=== PATIENT | female | born 1995 | race Caucasian/White ===

== ENCOUNTER 2016-12-13 14:25 | Emergency (ER) | payer OTHER ==
[~2016-12-13] VITALS: Ht 154.9 cm; Wt 49.0 kg
[~2016-12-13 14:25] MED LIST: IBUP400T22 PO; METO5TAB58 PO; NITR-58 PO; OMEP20CA9 PO; ONDA4TAB14 PO; ONDA4TAB8 PO; PANT40TA3 PO; SUCR1TAB56 PO
[2016-12-13 14:48] VITALS: Ht 154.9 cm; Wt 49.0 kg
[2016-12-13] MEDS ORDERED: FAMOTIDINE 20 MG INJ IV STA (16:00)
[2016-12-13] MEDS ORDERED: morphine 4 MG/ML VIAL IV STA (16:00)
[2016-12-13] MEDS ORDERED: SOD CHLORIDE 0.9% 1,000 ML IV STA (16:00)
[2016-12-13] MEDS ORDERED: ONDANSETRON 4 MG INJ IV STA ×2 (16:00→17:29)
[2016-12-13 16:20] LABS: ADD SCAN DIFF NO
[2016-12-13 16:25] LABS: BASOPHILS % 0.1 % (0.0-2.0); HEMATOCRIT 41.7 % (37.0-47.0); HEMOGLOBIN 14.1 g/dl (12.0-16.0); LYMPHOCYTES # 0.8 10^3/ul (0.8-2.9); LYMPHOCYTES % 9.7 % (15.0-51.0); MEAN CORPUSCULAR HEMOGLOBIN 30.2 pg (29.0-33.0); MEAN CORPUSCULAR HGB CONC 33.8 g/dl (32.0-37.0); MEAN CORPUSCULAR VOLUME 89.3 fl (82.0-101.0); MEAN PLATELET VOLUME 11.1 fl (7.4-10.4); MONOCYTE # 0.1 10^3/ul (0.3-0.9); MONOCYTES % 1.3 % (0.0-11.0); NEUTROPHIL # 7.5 10^3/ul (1.6-7.5); NEUTROPHILS % 88.5 % (39.0-77.0); PLATELET COUNT 279 10^3/UL (140-415); RED BLOOD COUNT 4.67 10^6/ul (4.20-5.40); RED CELL DISTRIBUTION WIDTH 13.6 % (11.5-14.5); WHITE BLOOD COUNT 8.5 10^3/ul (4.8-10.8)
[2016-12-13 16:44] LABS: ALBUMIN 5.1 g/dl (3.3-4.9); POTASSIUM 3.4 mmol/L (3.5-5.1)
[2016-12-13 16:46] LABS: BILIRUBIN,INDIRECT 0.6 mg/dl (0-1.1); BILIRUBIN,TOTAL 0.6 mg/dl (0.2-1.3); CREATININE 0.75 mg/dl (0.44-1.00)
[2016-12-13 16:47] LABS: ALBUMIN/GLOBULIN RATIO 1.54; TOTAL PROTEIN 8.4 g/dl (6.1-8.1)
[2016-12-13] MEDS: LIDOCAINE/MYLANTA 40 ML BTL PO ONE ×2 (17:35→17:37)
[2016-12-13 17:50] LABS: ADD UMIC YES; URINE BILIRUBIN (Dip) NEGATIVE (NEGATIVE); URINE BLOOD (Dip) NEGATIVE (NEGATIVE); URINE COLOR LT. YELLOW (YELLOW); URINE GLUCOSE (Dip) NEGATIVE (NEGATIVE); URINE KETONES (Dip) 3+ (NEGATIVE); URINE LEUKOCYTE ESTERASE (Dip) TRACE (NEGATIVE); URINE NITRITE (Dip) NEGATIVE (NEGATIVE); URINE TOTAL PROTEIN (Dip) NEGATIVE (NEGATIVE); URINE UROBILINOGEN (Dip) 0.2 E.U./dL (0.1-1.0)
--- NOTE | 2016-12-13 17:54 | RADRPT ---
PROCEDURE: CT abdomen and pelvis without IV contrast. CLINICAL INDICATION: Abdominal pain TECHNIQUE: CT scan of the abdomen and pelvis without contrast was performed on the [employer] volumetric [address] scanner. The patient was scanned without intravenous contrast. Coronal and sagittal refo rmatted images were obtained from the axial source images. The CTDI vol is 7.47 mGy and the DLP is 3 49.43 mGy-cm. COMPARISON: None. FINDINGS: CT abdomen: The lung bases are clear. The heart size is not enlarged and is without pericardial thickening or e ffusion. The liver is normal in size and density and is without focal mass or intrahepatic biliary dilatation . The spleen is normal in size and homogeneous in density. The stomach is grossly unremarkable. T he pancreas as visualized is normal. Suggestion of layering sludge in the gallbladder lumen is seen . No common bile duct dilatation is seen. The adrenal glands are symmetric and normal. The kidneys are symmetrically unremarkable as well. No renal calculus or obstructive uropathy or mass lesion i s seen. The aorta is of normal in caliber. There is no retroperitoneal lymphadenopathy. The gian hepatis region is clear. The small and large bowel and mesentery, as visualized, are unremarkable. The norm al appendix is identified. CT pelvis: The pelvic organs are normal. The pelvic sidewalls and inguinal regions are clear. No pelvic mass, lymphadenopathy, or free fluid is seen. No acute inflammation is seen. The urinary bladder is wit hin normal limits. The surrounding osseous structures are unremarkable. No osteolytic or osteoblastic lesion is detect ed. IMPRESSION: 1. No acute pathology in the abdomen and pelvis. 2. Suggestion of layering sludge in the gallbladder lumen. RPTAT: HPNM Physician Arley Date Time Electronically viewed and signed by Physician Arley on 12/13/2016 17:54 /
[2016-12-13 18:07] LABS: BACTERIA,URINE MODERATE; SQUAMOUS EPITHELIAL CELL,UR MANY; URINE RBCS NONE SEEN /HPF (0)
[2016-12-13] MEDS ORDERED: PANT40TA3 PO (18:16)
[2016-12-13] MEDS ORDERED: ONDA4TAB14 PO (18:16)
--- NOTE | 2016-12-13 18:21 | ERD ---
ER Documentation Chief Complaint Date/Time DATE: 12/13/16 TIME: 18:17 Chief Complaint Complains of abdominal pain x 3 days but has been a couple of weeks HPI 21-year-old female with a past medical history of gastric ulcers, epigastric pain presents to the ED complaining of generalized abdominal pain that started earlier this morning. Ports that this abdominal pain feels different because it is very severe. Rates the pain a 10 out of 10. States that she has not tried taking any medications. 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 Gamez. Reports that she has an endoscopy appointment on December 01, 2016. States that her last menses was 1 week ago. Denies any chest pain, shortness of breath, diarrhea, weakness, numbness or tingling. Denies any alcohol, drug use, smoking. Denies any dysuria, urgency, frequency, hematuria. ROS All systems reviewed and are negative except as per history of present illness. Medications Home Meds Active Scripts Ondansetron (Ondansetron Odt) 4 Mg Tab.rapdis, 4 MG PO Q6H Y for NAUSEA AND/OR VOMITING, #20 TAB Prov:REGLA VALENTE PA-C 12/13/16 Pantoprazole* (Protonix*) 40 Mg Tablet.dr, 40 MG PO DAILY, #30 TAB Prov:REGLA VALENTE PA-C 12/13/16 Ibuprofen* (Motrin*) 400 Mg Tab, 400 MG PO Q6H Y for PAIN AND OR ELEVATED TEMP, #30 TAB Prov:SURESH HOLT PA-C 07/20/16 Ondansetron (Ondansetron Odt) 4 Mg Tab.rapdis, 4 MG PO Q6H Y for NAUSEA AND/OR VOMITING, #10 TAB Prov:SURESH HOLT PA-C 07/20/16 Nitrofurantoin Monohyd Macrocr* (Macrobid*) 100 Mg Capsr, 100 MG PO BID for 14 Days, CAP Prov:PETER BRYSON PA-C 06/27/16 Ondansetron Hcl* (Zofran*) 4 Mg Tablet, 4 MG PO Q6H for NAUSEA AND/OR VOMITING, #30 TAB Prov:PETER BRYSON PA-C 06/27/16 Pantoprazole* (Protonix*) 40 Mg Tablet., 40 MG PO DAILY, #20 TAB Prov:PETER BRYSON PA-C 06/27/16 Sucralfate* (Carafate*) 1 Gm Tab, 1 GM PO QID, #30 TAB Prov:PETER BRYSON PA-C 04/11/16 Ondansetron Hcl* (Zofran*) 4 Mg Tablet, 4 MG PO Q6H for NAUSEA AND/OR VOMITING, #10 TAB Prov:MARYBETH PUGH NP 02/12/16 Reported Medications Omeprazole* (Prilosec*) 20 Mg Capsule.dr, 20 MG PO QAM, CAP 10/24/14 Metoclopramide* (Reglan*) 5 Mg Tablet, 5 MG PO QAM, TAB 10/24/14 Allergies Allergies: Coded Allergies: No Known Drug Allergies (Verified Allergy, Mild, 10/24/14) PMhx/Soc History of Surgery: No Anesthesia Reaction: No Hx Neurological Disorder: Yes (HX OF MIGRAINES) Hx Respiratory Disorders: No Hx Cardiac Disorders: No Hx Psychiatric Problems: No Hx Miscellaneous Medical Probl: Yes (GASTRIC ULCERS) Hx Alcohol Use: No Hx Substance Use: No Hx Tobacco Use: No Physical Exam Vitals Vital Signs Date Time Temp Pulse Resp B/P Pulse Ox O2 Delivery O2 Flow Rate FiO2 12/13/16 14:48 98.3 80 20 141/85 100 Physical Exam Const: [id number], well-nourished. In no acute distress. Head: Atraumatic, normocephalic Eyes: Normal Conjunctiva without injection. No purulent discharge. ENT: Normal external ear, nose. Moist oropharynx without tonsillar exudates. Non -erythematous pharynx. Uvula midline. No drooling. No trismus. Neck: No cervical midline tenderness. Full range of motion. No meningismus. No cervical lymphadenopathy. No JVD. Resp: Clear to auscultation bilaterally. No wheezing, rhonchi, rales, or crackles. No accessory muscle use. No retractions. Cardio: Regular rate and rhythm. No murmurs, rubs or gallops. Abd: Soft, generalized tenderness palpation, non distended. Normal bowel sounds. No palpable masses. No rebound tenderness. No guarding. Negative McBurney's point. Negative psoas sign. Negative obturator sign. Skin: No petechiae or rashes Back: No midline tenderness. No CVA tenderness. Ext: No cyanosis, or edema. Neur: Awake and alert. Normal gait. Normal coordination. Psych: Normal Mood and Affect Result Diagram: 12/13/16 1614 12/13/16 1614 Results 24 hrs Laboratory Tests Test 12/13/16 16:14 12/13/16 17:00 Alanine Aminotransferase (ALT/SGPT) 42IU/L Albumin 5.1g/dl Albumin/Globulin Ratio 1.54 Alkaline Phosphatase 98IU/L Anion Gap 22 Aspartate Amino Transf (AST/SGOT) 32IU/L Basophils # 0.010^3/ul Basophils % 0.1% Blood Urea Nitrogen 14mg/dl Calcium Level 10.0mg/dl Carbon Dioxide Level 21mmol/L Chloride Level 102mmol/L Creatinine 0.75mg/dl Direct Bilirubin 0.00mg/dl Eosinophils # 0.010^3/ul Eosinophils % 0.0% Globulin 3.30g/dl Glucose Level 124mg/dl Hematocrit 41.7% Hemoglobin 14.1g/dl Indirect Bilirubin 0.6mg/dl Lipase 57U/L Lymphocytes # 0.810^3/ul Lymphocytes % 9.7% Mean Corpuscular Hemoglobin 30.2pg Mean Corpuscular Hemoglobin Concent 33.8g/dl Mean Corpuscular Volume 89.3fl Mean Platelet Volume 11.1fl Monocytes # 0.110^3/ul Monocytes % 1.3% Neutrophils # 7.510^3/ul Neutrophils % 88.5% Nucleated Red Blood Cells # 0.010^3/ul Nucleated Red Blood Cells % 0.0/100WBC Platelet Count 42692^3/UL Potassium Level 3.4mmol/L Red Blood Count 4.6710^6/ul Red Cell Distribution Width 13.6% Sodium Level 142mmol/L Total Bilirubin 0.6mg/dl Total Protein 8.4g/dl White Blood Count 8.510^3/ul Urine Bacteria MODERATE Urine Bilirubin NEGATIVE Urine Clarity CLOUDY Urine Color LT. YELLOW Urine Glucose NEGATIVE% Urine Hemoglobin NEGATIVE Urine Ketones 3+ Urine Leukocyte Esterase TRACE Urine Microscopic RBC NONE SEEN/HPF Urine Microscopic WBC 5-10/HPF Urine Nitrite NEGATIVE Urine Specific [place] 1.020 Urine Squamous Epithelial Cells MANY Urine Total Protein NEGATIVE Urine Urobilinogen 0.2 E.U./dL Urine pH 7.0 Current Medications Medications (Trade) Dose Ordered Sig/Charito Route PRN Reason Start Time Stop Time Status Last Admin Dose Admin Sodium Chloride (NS) 1,000 ml @ 1,000 mls/hr Q1H STAT IV 12/13/16 16:00 12/13/16 16:59 DC 12/13/16 16:09 Morphine Sulfate (morphine) 4 mg ONCE STAT IV 12/13/16 16:00 12/13/16 16:02 DC 12/13/16 16:10 Ondansetron HCl (Zofran Inj) 4 mg ONCE STAT IV 12/13/16 16:00 12/13/16 16:02 DC 12/13/16 16:10 Famotidine (Pepcid Iv) 20 mg ONCE STAT IV 12/13/16 16:00 12/13/16 16:02 DC 12/13/16 16:09 Miscellaneous Medication (Gi Cocktail (2)) 40 ml ONCE ONCE PO 12/13/16 17:30 12/13/16 17:31 DC Ondansetron HCl (Zofran Inj) 4 mg ONCE STAT IV 12/13/16 17:29 12/13/16 17:31 DC 12/13/16 17:35 Pantoprazole (Protonix Iv) 40 mg ONCE ONCE IV 12/13/16 18:30 12/13/16 18:31 Procedures/MDM This is a 21-year-old female with a past medical history of gastric ulcers presents the ED complaining of generalized abdominal pain.. Since patient reports that her pain is different from her previous abdominal pains, patient was further worked up with CBC, CMP, lipase, UA, urine , CT of the abdomen and pelvis. Patient's pain and symptoms have improved after treatment with 4 mg IV morphine, 20 mg IV famotidine, 40 mg IV Protonix. Patient denied wanting the GI cocktail this time. CBC: No leukocytosis. No e/o of systemic infection. No e/o anemia. CMP: No e/o severe acidosis, alkalosis, renal failure, diabetic ketoacidosis, liver disease Lipase within normal limits. Urine: No leukocyte esterase, no nitrites, no hematuria. Urine : negative PROCEDURE: CT abdomen and pelvis without IV contrast. CLINICAL INDICATION: Abdominal pain TECHNIQUE: CT scan of the abdomen and pelvis without contrast was performed on the [employer] volumetric [address] scanner. The patient was scanned without intravenous contrast. Coronal and sagittal reformatted images were obtained from the axial source images. The CTDI vol is 7.47 mGy and the DLP is 349.43 mGy -cm. COMPARISON: None. FINDINGS: CT abdomen: The lung bases are clear. The heart size is not enlarged and is without pericardial thickening or effusion. The liver is normal in size and density and is without focal mass or intrahepatic biliary dilatation. The spleen is normal in size and homogeneous in density. The stomach is grossly unremarkable. The pancreas as visualized is normal. Suggestion of layering sludge in the gallbladder lumen is seen. No common bile duct dilatation is seen. The adrenal glands are symmetric and normal. The kidneys are symmetrically unremarkable as well. No renal calculus or obstructive uropathy or mass lesion is seen. The aorta is of normal in caliber. There is no retroperitoneal lymphadenopathy. The gian hepatis region is clear. The small and large bowel and mesentery, as visualized, are unremarkable. The normal appendix is identified. CT pelvis: The pelvic organs are normal. The pelvic sidewalls and inguinal regions are clear. No pelvic mass, lymphadenopathy, or free fluid is seen. No acute inflammation is seen. The urinary bladder is within normal limits. The surrounding osseous structures are unremarkable. No osteolytic or osteoblastic lesion is detected. IMPRESSION: 1. No acute pathology in the abdomen and pelvis. 2. Suggestion of layering sludge in the gallbladder lumen. A differential diagnosis considered includes but is not limited to gastritis, GERD, peptic ulcer disease, cholecystitis, choledocholithiasis, cholangitis, pancreatitis, appendicitis, bowel obstruction, ileus, volvulus, nephrolithiasis , pyelonephritis, hepatitis, perforated viscus, diverticulitis, abdominal hernia , acute abdomen, mesenteric ischemia or other emergent conditions. Discharge medications: Protonix, Zofran Follow up with primary care physician in 1-2 days for referral to concrete spreader. Instructed patient to return to the ED sooner for any worsening symptoms. Patient's questions were answered. Patient understood and agreed with discharge plan. Patient discharged stable. Departure Diagnosis: Primary Impression: Abdominal pain Abdominal location: generalized Qualified Code: R10.84 - Generalized abdominal pain Condition: Stable Patient Instructions: Abdominal Pain, Gastritis Vs. Ulcer Referrals: COMMUNITY CLINICS YOU HAVE RECEIVED A MEDICAL SCREENING EXAM AND THE RESULTS INDICATE THAT YOU DO NOT HAVE A CONDITION THAT REQUIRES URGENT TREATMENT IN THE EMERGENCY DEPARTMENT. FURTHER EVALUATION AND TREATMENT OF YOUR CONDITION CAN WAIT UNTIL YOU ARE SEEN IN YOUR DOCTORS OFFICE WITHIN THE NEXT 1-2 DAYS. IT IS YOUR RESPONSIBILITY TO MAKE AN APPOINTMENT FOR FOLOW-UP CARE. IF YOU HAVE A PRIMARY DOCTOR --you should call your primary doctor and schedule an appointment IF YOU DO NOT HAVE A PRIMARY DOCTOR YOU CAN CALL OUR PHYSICIAN REFERRAL HOTLINE AT IF YOU CAN NOT AFFORD TO SEE A PHYSICIAN YOU CAN CHOSE FROM THE FOLLOWING [facility] [address] [facility] [address] [facility] [address] [facility] [address] [facility] [address]. [facility]. [address] [facility] [address] [address] [facility] YOU HAVE RECEIVED A MEDICAL SCREENING EXAM AND THE RESULTS INDICATE THAT YOU DO NOT HAVE A CONDITION THAT REQUIRES URGENT TREATMENT IN THE EMERGENCY DEPARTMENT. FURTHER EVALUATION AND TREATMENT OF YOUR CONDITION CAN WAIT UNTIL YOU ARE SEEN IN YOUR DOCTORS OFFICE WITHIN THE NEXT 1-2 DAYS. IT IS YOUR RESPONSIBILITY TO MAKE AN APPOINTMENT FOR FOLOW-UP CARE. IF YOU HAVE A PRIMARY DOCTOR --you should call your primary doctor and schedule and appointment IF YOU DO NOT HAVE A PRIMARY DOCTOR YOU CAN CALL OUR PHYSICIAN REFERRAL HOTLINE AT . IF YOU CAN NOT AFFORD TO SEE A PHYSICIAN YOU CAN CHOSE FROM THE FOLLOWING [facility] INSTITUTIONS: [facility] [address] [place] [address] [facility] [address] [place] [address] [facility] [address] [place] [address] [facility] URGENT CARE/SPECIALTIES Additional Instructions: FOLLOW UP WITH YOUR GASTROENTEORLOGIST IN 3-4 DAYS FOR ENDOSCOPY. Return to this facility if you are not improving as expected. REGLA VALENTE PA-C Dec 13, 2016 18:21
[2016-12-13] MEDS ORDERED: HYDROmorphONE 1 MG/ML SYG IV STA (18:25)
[2016-12-13] MEDS ORDERED: PANTOPRAZOLE 40 MG INJ IV ONE (18:30)
[2016-12-13] MEDS ORDERED: SOD CHLORIDE 0.9% 1,000 ML IV ONE (18:30)
[2016-12-13 19:16] VITALS: BP 115/71; PULSE 75; RESP 18; TEMP 99.2
== END 2016-12-13 19:16 | disposition home or self-care (01) ==
LOC: FTE 14:25
DX: R10.84 Generalized abdominal pain (principal)
CPT/HCPCS: 36415; 74176; 80053; 81001; 83690; 85025; 96374; 96375; 96376; C9113; J1170; J2270; J2405; J7030; Z7502; Z7610; 81003

== ENCOUNTER 2017-06-19 17:25 | Emergency (ER) | payer OTHER ==
[~2017-06-19] VITALS: Ht 162.6 cm; Wt 51.5 kg
[~2017-06-19 17:25] MED LIST changes: +[UNRECOGNIZED DRUG - REMARK]
[2017-06-19 17:27] VITALS: Ht 162.6 cm; Wt 51.5 kg
[2017-06-19] MEDS ORDERED: FAMOTIDINE 20 MG INJ IV STA (17:46)
[2017-06-19] MEDS ORDERED: SOD CHLORIDE 0.9% 1,000 ML IV STA (17:46)
[2017-06-19] MEDS ORDERED: LIDOCAINE/MYLANTA 40 ML BTL PO STA (17:46)
[2017-06-19] MEDS ORDERED: BELLADONNA/PHENOBARBITAL TAB PO STA (17:46)
[2017-06-19] MEDS ORDERED: ONDANSETRON 4 MG INJ IV STA (17:46)
--- NOTE | 2017-06-19 17:53 | ERD ---
ER Documentation Chief Complaint Date/Time DATE: 06/19/17 TIME: 17:49 Chief Complaint N/V with head pain x today HPI Patient is a 21-year-old female with a past medical history of gastric ulcers, chronic epigastric pain who presents to the emergency department for concerns of epigastric pain, nausea, vomiting and a headache. Patient states for last week she has had epigastric pain. Patient describes the pain to be burning and constant in nature. Patient states she initially ran out of her ranitidine and omeprazole 2 weeks ago. Patient states she recently refilled her prescription 1 week ago. Patient starting this medication. Patient states over the last 3- 4 days her symptoms have gotten worse. Patient reports 5 episodes of bilious, nonbloody vomiting today. Patient states that her pain is localized to the epigastric region. Patient denies any chest pain, shortness breath, nausea, vomiting, diarrhea. Patient also does report dysuria and increased vaginal discharge. Patient states that she has not been sexually active for 2 years. Patient admits to marijuana use earlier today to help with her symptoms. Patient states she is followed by GI specialist Dr. Reyes, who she has an upcoming endoscopy/colonoscopy scheduled within 3 weeks. She also reports a mild headache. Patient denies any sudden, 10 out of 10 onset of the headache. Patient denies any fevers, chills, blurry vision, photophobia, phonophobia or LOC. ROS All systems reviewed and are negative except as per history of present illness. Medications Home Meds Active Scripts Ondansetron (Ondansetron Odt) 4 Mg Tab.rapdis, 4 MG PO Q6H Y for NAUSEA AND/OR VOMITING, #10 TAB Prov:APRIL DÍAZ PA-C 06/19/17 Ranitidine Hcl* (Zantac*) 150 Mg Tablet, 150 MG PO BID Y for EPIGASTRIC PAIN, # 30 TAB Prov:APRIL DÍAZ PA-C 06/19/17 Omeprazole* (Omeprazole*) 20 Mg Capsule.dr, 20 MG PO BID, #30 Prov:APRIL DÍAZ PA-C 06/19/17 Ondansetron (Ondansetron Odt) 4 Mg Tab.rapdis, 4 MG PO Q6H Y for NAUSEA AND/OR VOMITING, #20 TAB Prov:REGLA VALENTE PA-C 12/13/16 Pantoprazole* (Protonix*) 40 Mg Tablet., 40 MG PO DAILY, #30 TAB Prov:REGLA VALENTE PA-C 12/13/16 Ibuprofen* (Motrin*) 400 Mg Tab, 400 MG PO Q6H Y for PAIN AND OR ELEVATED TEMP, #30 TAB Prov:SURESH HOLT PA-C 07/20/16 Ondansetron (Ondansetron Odt) 4 Mg Tab.rapdis, 4 MG PO Q6H Y for NAUSEA AND/OR VOMITING, #10 TAB Prov:SURESH HOLT PA-C 07/20/16 Nitrofurantoin Monohyd Macrocr* (Macrobid*) 100 Mg Capsr, 100 MG PO BID for 14 Days, CAP Prov:PETER BRYSON PA-C 06/27/16 Ondansetron Hcl* (Zofran*) 4 Mg Tablet, 4 MG PO Q6H for NAUSEA AND/OR VOMITING, #30 TAB Prov:PETER BRYSON PA-C 06/27/16 Pantoprazole* (Protonix*) 40 Mg Tablet., 40 MG PO DAILY, #20 TAB Prov:PETER BRYSON PA-C 06/27/16 Sucralfate* (Carafate*) 1 Gm Tab, 1 GM PO QID, #30 TAB Prov:PETER BRYSON PA-C 04/11/16 Ondansetron Hcl* (Zofran*) 4 Mg Tablet, 4 MG PO Q6H for NAUSEA AND/OR VOMITING, #10 TAB Prov:MARYBETH PUGH NP 02/12/16 Reported Medications Omeprazole* (Prilosec*) 20 Mg Capsule., 20 MG PO QAM, CAP 10/24/14 Metoclopramide* (Reglan*) 5 Mg Tablet, 5 MG PO QAM, TAB 10/24/14 Discontinued Scripts Famotidine* (Pepcid*) 20 Mg Tablet, 20 MG PO BID for 30 Days, TAB Prov:APRIL DÍAZ PA-C 06/19/17 Allergies Allergies: Coded Allergies: No Known Drug Allergies (Verified Allergy, Mild, 06/19/17) PMhx/Soc History of Surgery: No Anesthesia Reaction: No Hx Neurological Disorder: Yes (HX OF MIGRAINES) Hx Respiratory Disorders: No Hx Cardiac Disorders: No Hx Psychiatric Problems: No Hx Miscellaneous Medical Probl: Yes (GASTRIC ULCERS) Hx Alcohol Use: No Hx Substance Use: Yes (Marijuana use weekly.) Hx Tobacco Use: No Smoking Status: Never smoker Physical Exam Vitals Vital Signs Date Time Temp Pulse Resp B/P Pulse Ox O2 Delivery O2 Flow Rate FiO2 06/19/17 20:47 87 16 107/57 97 Room Air 06/19/17 17:27 96.2 127 20 122/68 100 Physical Exam GENERAL: Well-developed, well-nourished female. Appears in no acute distress. Speaking in full sentences HEAD: Normocephalic, atraumatic. EYES: Pupils are equally reactive bilaterally. EOMs grossly intact. No conjunctival erythema. ENT: Moist mucous membranes. No uvula deviation. No kissing tonsils. NECK: Supple. No meningismus. Normal range of motion of the neck. LUNG: Clear to auscultation bilaterally. No rhonchi, wheezing, rales or coarse breath sounds. HEART: Regular rate and rhythm. No murmurs, rubs or gallops. ABDOMEN: Soft, and nondistended. Tender to palpation in the epigastric region. Positive bowel sounds in all four quadrants. No rebound tenderness, no guarding. Negative McBurney point tenderness. Negative Thrasher sign. No CVA tenderness. EXTREMITIES: Equal pulses bilaterally. No peripheral clubbing, cyanosis or edema. No unilateral leg swelling. NEUROLOGIC: Alert and oriented x3, cooperative. Mood and affect appropriate to situation. Cranial nerves II through XII are grossly intact. Normal speech. Motor exam: 5/5 strength in upper and lower extremities. Sensory exam: Sensation intact to light touch on all four extremities. Steady gait. No pronator drift. SKIN: Normal color. Warm and dry. No rashes or lesions. Result Diagram: 06/19/17180206/19/171802 Results 24 hrs Laboratory Tests Test 06/19/17 18:03 06/19/17 18:10 White Blood Count 9.810^3/ul Red Blood Count 4.3010^6/ul Hemoglobin 12.7g/dl Hematocrit 38.7% Mean Corpuscular Volume 90.0fl Mean Corpuscular Hemoglobin 29.5pg Mean Corpuscular Hemoglobin Concent 32.8g/dl Red Cell Distribution Width 14.1% Platelet Count 26695^3/UL Mean Platelet Volume 11.3fl Neutrophils % 77.7% Lymphocytes % 16.7% Monocytes % 5.2% Eosinophils % 0.0% Basophils % 0.2% Nucleated Red Blood Cells % 0.0/100WBC Neutrophils # (Manual) 7.610^3/ul Lymphocytes # 1.610^3/ul Monocytes # 0.510^3/ul Eosinophils # 0.010^3/ul Basophils # 0.010^3/ul Nucleated Red Blood Cells # 0.010^3/ul Sodium Level 144mmol/L Potassium Level 3.8mmol/L Chloride Level 104mmol/L Carbon Dioxide Level 23mmol/L Anion Gap 21 Blood Urea Nitrogen 8mg/dl Creatinine 0.78mg/dl Glucose Level 92mg/dl Calcium Level 9.7mg/dl Total Bilirubin 0.6mg/dl Direct Bilirubin 0.00mg/dl Indirect Bilirubin 0.6mg/dl Aspartate Amino Transf (AST/SGOT) 23IU/L Alanine Aminotransferase (ALT/SGPT) 44IU/L Alkaline Phosphatase 79IU/L Total Protein 8.1g/dl Albumin 4.8g/dl Globulin 3.30g/dl Albumin/Globulin Ratio 1.45 Lipase 51U/L Urine Color CELESTE Urine Clarity CLOUDY Urine pH 5.0 Urine Specific [place] 1.027 Urine Ketones TRACEmg/dL Urine Nitrite NEGATIVEmg/dL Urine Bilirubin NEGATIVEmg/dL Urine Urobilinogen NEGATIVEmg/dL Urine Leukocyte Esterase 3+Carlos/ul Urine Microscopic RBC 0/HPF Urine Microscopic WBC 0/HPF Urine Hemoglobin NEGATIVEmg/dL Urine Glucose NEGATIVEmg/dL Urine Total Protein 1+mg/dl Current Medications Medications (Trade) Dose Ordered Sig/Charito Route PRN Reason Start Time Stop Time Status Last Admin Dose Admin Sodium Chloride (NS) 1,000 ml @ 1,000 mls/hr Q1H STAT IV 06/19/17 17:46 06/19/17 18:45 DC 06/19/17 18:08 Ondansetron HCl (Zofran Inj) 4 mg ONCE STAT IV 06/19/17 17:46 06/19/17 17:48 DC 06/19/17 18:07 Famotidine (Pepcid Iv) 20 mg ONCE STAT IV 06/19/17 17:46 06/19/17 17:48 DC 06/19/17 18:07 Miscellaneous Medication (Gi Cocktail (2)) 40 ml ONCE STAT PO 06/19/17 17:46 06/19/17 17:48 DC 06/19/17 18:07 Belladonna/ Phenobarbital () 2 tab ONCE STAT PO 06/19/17 17:46 06/19/17 17:48 DC 06/19/17 18:07 Lorazepam (Ativan) 1 mg ONCE ONCE IV 06/19/17 19:00 06/19/17 19:01 DC 06/19/17 19:13 Procedures/MDM ED COURSE: The patient was stable throughout ED course. I kept the patient and/or family informed of laboratory and diagnostic imaging results throughout the ED course. DIAGNOSTIC IMAGING: Read by radiologist. Patient Name Jackeline Blackburn Study Date 06/19/2017 6:55 PM Patient 1995 Accession No. [id number] Referring Physician April Díaz Pa-C CLINICAL INDICATION: Epigastric pain with history of gastric ulcers. TECHNIQUE: AP abdomen x-ray. COMPARISON: None. FINDINGS: Nonspecific moderate small bowel ileus. Recommend close radiographic follow up. Air is seen in the colon. No air seen in the rectum. Obstruction is considered less likely. Small amount of air in the stomach. There are no abnormal calcifications overlying the urinary tracts. The osseus structures are unremarkable. The lung bases are clear. IMPRESSION: Nonspecific moderate small bowel ileus. RPTAT: UU Signed By: Valentino Terrell MD 06/19/2017 7:45:12 PM . MEDICATIONS GIVEN: IV fluids fluids, Zofran, Pepcid, GI cocktail. Patient reported feeling anxious after initial medication.. Patient was given Ativan 1 mg IV. Patient tolerated medication well with no adverse reactions. No additional episodes of vomiting were noted throughout the ED course. Patient did feel her symptoms are improved. Patient wished to go home. MEDICAL DECISION MAKING: This is a 21-year-old female with history of gastric ulcers, chronic epigastric pain and marijuana use who presents the emergency department for concerns of nausea, vomiting and epigastric pain. Vital signs were reviewed. Patient is afebrile. CBC showed no evidence of systemic infection or severe anemia. CMP showed no evidence of electrolyte abnormalities, severe acidosis, alkalosis, renal failure, or liver disease. Lipase showed no evidence of acute pancreatitis. UA did show 3+ leukocyte esterase, no WBCs no RBCs. Patient did report symptoms of increased vaginal discharge. At this time I believe the leukocyte esterase are related to increased vaginal discharge. Patient's urine was sent for gonorrhea, chlamydia testing. Patient did not wish to be treated at this time. Patient will be notified if results are positive. Patient will return to the ED for treatment if needed. Urine test was negative. KUB was obtained. KUB showed nonspecific moderate small bowel ileus. I discussed these findings with my supervising physician Dr. Cartagena. Patient was observed throughout the ED course and had no additional episodes of vomiting for over 3 hours. In addition, patient was able to tolerate p.o. fluids without any difficulty. At this time, there is no indication for admission. Patient will be given strict return precautions. Patient was advised to return to the ED if she has any worsening nausea, vomiting or inability to have a bowel movement. At this time, patient's presentation is most consistent with gastric ulcer, vomiting and ileus. Low suspicion for ACS, AAA, bowel obstruction, bowel perforation, cholecystitis, pancreatitis, pyelonephritis, nephrolithiasis, appendicitis , ectopic . Patient will be given a prescription for ranitidine and omeprazole per her request. PRESCRIPTIONS: Zofran, omeprazole, ranitidine DISCHARGE: At this time, patient is stable for discharge and outpatient management. She was given a copy of all blood work and imaging studies obtained today. Patient was advised to follow-up with her GI specialist in the next 1-2 days. Patient also encouraged to move her endoscopy/colonoscopy date up. I have instructed the patient to follow-up with his/her primary care physician in 1-2 days. I have instructed the patient to promptly return to the ER at any time for any new or worsening symptoms including increased pain, nausea, vomiting, diarrhea, fever, weakness or LOC. The patient and/or family expressed understanding of and agreement with this plan. All questions were answered. Home care instructions were provided. Disclaimer: Inadvertent spelling and grammatical errors are likely due to EHR/ dictation software use and do not reflect on the overall quality of patient care. Also, please note that the electronic time recorded on this note does not necessarily reflect the actual time of the patient encounter. Departure Diagnosis: Primary Impression: Gastric ulcer Gastric ulcer chronicity: unspecified ulcer chronicity Gastric ulcer complication status: unspecified whether hemorrhage or perforation present Qualified Code: K25.9 - Gastric ulcer, unspecified chronicity, unspecified whether gastric ulcer hemorrhage or perforation present Additional Impression: Nausea and vomiting Vomiting type: unspecified Vomiting Intractability: unspecified Qualified Code: R11.2 - Nausea and vomiting, intractability of vomiting not specified, unspecified vomiting type Condition: Stable Patient Instructions: Nausea and Vomiting-Adult Additional Instructions: Call your primary care doctor TOMORROW for an appointment during the next 1-2 days.See the doctor sooner or return here if your condition worsens before your appointment time. Follow-up with your GI doctor in the next 1-2 days. Advised him that you need to have your endoscopy/colonoscopy moved up given that your pain has worsened. APRIL DÍAZ PA-C Jun 19, 2017 17:53
[2017-06-19 18:11] LABS: BASOPHILS % 0.2 % (0.0-2.0); HEMATOCRIT 38.7 % (37.0-47.0); HEMOGLOBIN 12.7 g/dl (12.0-16.0); LYMPHOCYTES # 1.6 10^3/ul (0.8-2.9); LYMPHOCYTES % 16.7 % (15.0-51.0); MEAN CORPUSCULAR HEMOGLOBIN 29.5 pg (29.0-33.0); MEAN CORPUSCULAR HGB CONC 32.8 g/dl (32.0-37.0); MEAN PLATELET VOLUME 11.3 fl (7.4-10.4); MONOCYTE # 0.5 10^3/ul (0.3-0.9); MONOCYTES % 5.2 % (0.0-11.0); NEUTROPHILS % 77.7 % (39.0-77.0); PLATELET COUNT 214 10^3/UL (140-415); RED CELL DISTRIBUTION WIDTH 14.1 % (11.5-14.5); WHITE BLOOD COUNT 9.8 10^3/ul (4.8-10.8)
[2017-06-19 18:30] LABS: ALBUMIN 4.8 g/dl (3.3-4.9); ALBUMIN/GLOBULIN RATIO 1.45; BILIRUBIN,INDIRECT 0.6 mg/dl (0-1.1); BILIRUBIN,TOTAL 0.6 mg/dl (0.2-1.3); CALCIUM 9.7 mg/dl (8.4-10.2); CREATININE 0.78 mg/dl (0.44-1.00); POTASSIUM 3.8 mmol/L (3.5-5.1); TOTAL PROTEIN 8.1 g/dl (6.1-8.1)
[2017-06-19 18:45] LABS: ADD UMIC YES; UR ASCORBIC ACID 40 mg/dL (NEGATIVE); UR BILIRUBIN (Dip) NEGATIVE (NEGATIVE); UR BLOOD (Dip) NEGATIVE (NEGATIVE); UR COLOR AMBER (YELLOW); UR GLUCOSE (Dip) NEGATIVE (NEGATIVE); UR KETONES (Dip) TRACE mg/dL (NEGATIVE); UR LEUKOCYTE ESTERASE (Dip) 3+ Leu/ul (NEGATIVE); UR NITRITE (Dip) NEGATIVE (NEGATIVE); UR RBC 0 /HPF (0-5); UR SPECIFIC GRAVITY (Dip) 1.027 (1.003-1.030); UR TOTAL PROTEIN (Dip) 1+ mg/dl (NEGATIVE); UR UROBILINOGEN (Dip) NEGATIVE (NEGATIVE)
[2017-06-19 18:50] LABS: UR CLARITY CLOUDY (CLEAR)
[2017-06-19] MEDS ORDERED: LORAZEPAM 2 MG INJ IV ONE (19:00)
[2017-06-19] MEDS ORDERED: FAMO-96 PO (20:29)
[2017-06-19] MEDS ORDERED: OMEP20CA16 PO (20:29)
[2017-06-19] MEDS ORDERED: RANI150T9 PO (20:30)
[2017-06-19] MEDS ORDERED: ONDA4TAB14 PO (20:30)
[2017-06-19 20:47] VITALS: BP 107/57; PULSE 87; RESP 16
--- NOTE | 2017-06-20 09:55 | RADRPT ---
PROCEDURE: XR Abdomen. CLINICAL INDICATION: Epigastric pain with history of gastric ulcers. TECHNIQUE: AP abdomen x-ray. COMPARISON: None. FINDINGS: Nonspecific moderate small bowel ileus. Recommend close radiographic follow up. Air is seen in the colon. No air seen in the rectum. Obstruction is considered less likely. Small amount of air in th e stomach. There are no abnormal calcifications overlying the urinary tracts. The osseus structures are unremarkable. The lung bases are clear. IMPRESSION: Nonspecific moderate small bowel ileus. RPTAT: UU Physician Bhavin Date Time Electronically viewed and signed by Physician Bhavin on 06/19/2017 19:45 RS/
== END 2017-06-19 20:48 | disposition home or self-care (01) ==
LOC: FTE 17:25
DX: K25.9 Gastric ulcer, unspecified as acute or chronic, without hemorrhage or perforation (principal)
CPT/HCPCS: 36415; 74000; 80053; 81001; 83690; 85025; 96374; 96375; J2060; J2405; J7030; Z7502; Z7610

== ENCOUNTER 2017-06-26 09:30 | Emergency (ER) | payer OTHER ==
[~2017-06-26] VITALS: Wt 54.5 kg
[~2017-06-26 09:30] MED LIST changes: +OMEP20CA16 PO; +RANI150T9 PO; -[UNRECOGNIZED DRUG - REMARK]
[2017-06-26] MEDS ORDERED: morphine 4 MG/ML VIAL ONE (11:33)
[2017-06-26] MEDS ORDERED: ONDANSETRON 4 MG INJ ONE (11:33)
[2017-06-26 11:47] LABS: BASOPHILS % 0.1 % (0.0-2.0); HEMATOCRIT 40.5 % (37.0-47.0); HEMOGLOBIN 13.6 g/dl (12.0-16.0); LYMPHOCYTES # 0.7 10^3/ul (0.8-2.9); LYMPHOCYTES % 9.9 % (15.0-51.0); MEAN CORPUSCULAR HEMOGLOBIN 30.4 pg (29.0-33.0); MEAN CORPUSCULAR HGB CONC 33.6 g/dl (32.0-37.0); MEAN CORPUSCULAR VOLUME 90.6 fl (82.0-101.0); MONOCYTE # 0.2 10^3/ul (0.3-0.9); MONOCYTES % 2.6 % (0.0-11.0); NEUTROPHILS % 87.3 % (39.0-77.0); PLATELET COUNT 204 10^3/UL (140-415); RED BLOOD COUNT 4.47 10^6/ul (4.20-5.40); RED CELL DISTRIBUTION WIDTH 13.8 % (11.5-14.5); WHITE BLOOD COUNT 7.3 10^3/ul (4.8-10.8)
[2017-06-26] MEDS ORDERED: SOD CHLORIDE 0.9% 1,000 ML IV SCH (12:00)
[2017-06-26] MEDS ORDERED: ONDANSETRON 4 MG INJ IV ONE (12:00)
[2017-06-26] MEDS ORDERED: morphine 4 MG/ML VIAL IV ONE (12:00)
[2017-06-26 12:07] LABS: ALBUMIN 5.2 g/dl (3.3-4.9); ALBUMIN/GLOBULIN RATIO 1.4; BILIRUBIN,INDIRECT 0.3 mg/dl (0-1.1); BILIRUBIN,TOTAL 0.3 mg/dl (0.2-1.3); CALCIUM 9.7 mg/dl (8.4-10.2); CREATININE 0.77 mg/dl (0.44-1.00); TOTAL PROTEIN 8.9 g/dl (6.1-8.1)
--- NOTE | 2017-06-26 12:54 | RADRPT ---
PROCEDURE: CT Abdomen and Pelvis without contrast CLINICAL INDICATION: Abdominal pain, colonoscopy yesterday, history of acid reflux. TECHNIQUE: Transaxial images were obtained through the abdomen and pelvis on a multi-slice scanner without the intravenous contrast administration. No oral contrast had previously been given. Sagit manny and coronal re-formations were subsequently reconstructed. One or more of the following dose reduction techniques were used: - Automated exposure control. - Adjustment of the mA and/or kV according to patient size. - Use of iterative reconstruction technique. Radiation dose: CTDIvol = 5.19 mGy; DLP = 262.28 mGy-cm. COMPARISON: 12/13/2016 FINDINGS: Lung bases: The visualized lung bases appear unremarkable. Liver: The liver remains borderline enlarged but no focal lesion identified. Gallbladder: The wall is not thickened. No radiopaque stones are identified. Bile ducts: The intra and extrahepatic bile ducts are normal in caliber. Pancreas: Appears normal with no mass or inflammation evident. Spleen: Normal in size with no focal lesion. Adrenals: Normal with no mass identified. Kidneys, ureters and bladder: The kidneys are normal in size and there is no mass, pathological calc ification, or hydronephrosis evident. There is no perinephric stranding. The ureters are normal in c aliber and no ureteroliths are identified. The bladder appears unremarkable. Reproductive organs: Unremarkable. Stomach and bowel: The stomach remains mildly distended with fluid. There is no evidence of bowel o bstruction or inflammation. Appendix: A normal vermiform appendix is evident. Peritoneum: No free intraperitoneal fluid or air is identified. Aorta: Normal in caliber with no aneurysmal dilatation. IVC: Unremarkable. Lymph nodes: No pathologically enlarged nodes are identified. Osseous structures: A small bone island is again seen within the left anterior inferior ileum. The osseous structures appear intact. IMPRESSION: 1. Compared to the previous CT of 12/13/2016, there is again borderline hepatomegaly with no focal lesion. 2. No evidence of bowel obstruction or inflammation with a normal vermiform appendix. 3. No evidence of urinary outflow obstruction or ureterolithiasis within normal appearing bladder. 4. No radiopaque stone is seen within the gallbladder, no bile duct dilatation is evident and the p ancreas appears unremarkable. 5. There is no free intraperitoneal fluid or air. Mary Avilez Physician Date Time Electronically viewed and signed by Mary Avilez Physician on 06/26/2017 12:54 RH/
--- NOTE | 2017-06-26 13:06 | ERD ---
ER Documentation Chief Complaint Date/Time DATE: 06/26/17 TIME: 13:05 Chief Complaint abd pain, nausea, gastric reflux HPI This a 21-year-old female presents to the emergency department today complaining of abdominal pain, nausea. States that she has a history of gastric reflux and ulcers in the past and had a colonoscopy yesterday by Dr. Reyes. States that she smokes marijuana daily. Denies any fevers or chills, dysuria. ROS All systems reviewed and are negative except as per history of present illness. Medications Home Meds Active Scripts Electrolyte,Oral (Pedialyte) 1,000 Ml Solution, 100 ML PO Q6 Y for VOMITTING, # 1000 ML Prov:ZACK BROWN PA-C 06/26/17 Acetaminophen* (Tylophen*) 500 Mg Capsule, 1 CAP PO Q6H Y for PAIN AND OR ELEVATED TEMP, #30 CAP Prov:ZACK BROWN PA-C 06/26/17 Hydrocodone/Acetaminophen ([place] 5-325 Tablet) 1 Each Tablet, 1 TAB PO Q6H Y for PAIN, #10 TAB Prov:ZACK BROWN PA-C 06/26/17 Ondansetron Hcl* (Zofran*) 4 Mg Tablet, 4 MG PO Q6H for NAUSEA AND/OR VOMITING, #30 TAB Prov:ZACK BROWN PA-C 06/26/17 Famotidine* (Pepcid*) 20 Mg Tablet, 20 MG PO BID for 7 Days, TAB Prov:ZACK BROWN PA-C 06/26/17 Ondansetron (Ondansetron Odt) 4 Mg Tab.rapdis, 4 MG PO Q6H Y for NAUSEA AND/OR VOMITING, #10 TAB Prov:APRIL DAIGLE PA-C 06/19/17 Ranitidine Hcl* (Zantac*) 150 Mg Tablet, 150 MG PO BID Y for EPIGASTRIC PAIN, # 30 TAB Prov:APRIL DAIGLE PA-C 06/19/17 Omeprazole* (Omeprazole*) 20 Mg Capsule.dr, 20 MG PO BID, #30 Prov:APRIL DAIGLE PA-C 06/19/17 Ondansetron (Ondansetron Odt) 4 Mg Tab.rapdis, 4 MG PO Q6H Y for NAUSEA AND/OR VOMITING, #20 TAB Prov:REGLA VALENTE PA-C 12/13/16 Pantoprazole* (Protonix*) 40 Mg Tablet., 40 MG PO DAILY, #30 TAB Prov:REGLA VALENTE PA-C 12/13/16 Ibuprofen* (Motrin*) 400 Mg Tab, 400 MG PO Q6H Y for PAIN AND OR ELEVATED TEMP, #30 TAB Prov:SURESH HOLT PA-C 07/20/16 Ondansetron (Ondansetron Odt) 4 Mg Tab.rapdis, 4 MG PO Q6H Y for NAUSEA AND/OR VOMITING, #10 TAB Prov:SURESH HOLT PA-C 07/20/16 Nitrofurantoin Monohyd Macrocr* (Macrobid*) 100 Mg Capsr, 100 MG PO BID for 14 Days, CAP Prov:PETER BRYSON PA-C 06/27/16 Ondansetron Hcl* (Zofran*) 4 Mg Tablet, 4 MG PO Q6H for NAUSEA AND/OR VOMITING, #30 TAB Prov:PETER BRYSON PA-C 06/27/16 Pantoprazole* (Protonix*) 40 Mg Tablet., 40 MG PO DAILY, #20 TAB Prov:PETER BRYSON PA-C 06/27/16 Sucralfate* (Carafate*) 1 Gm Tab, 1 GM PO QID, #30 TAB Prov:PETER BRYSON PA-C 04/11/16 Ondansetron Hcl* (Zofran*) 4 Mg Tablet, 4 MG PO Q6H for NAUSEA AND/OR VOMITING, #10 TAB Prov:MARBYETH PUGH NP 02/12/16 Reported Medications Omeprazole* (Prilosec*) 20 Mg Capsule.dr, 20 MG PO QAM, CAP 10/24/14 Metoclopramide* (Reglan*) 5 Mg Tablet, 5 MG PO QAM, TAB 10/24/14 Discontinued Scripts Famotidine* (Pepcid*) 20 Mg Tablet, 20 MG PO BID for 30 Days, TAB Prov:APRIL DAIGLE PA-C 06/19/17 Allergies Allergies: Coded Allergies: No Known Drug Allergies (Verified Allergy, Mild, 06/19/17) PMhx/Soc Medical and Surgical Hx: pt denies Surgical Hx History of Surgery: No Anesthesia Reaction: No Hx Neurological Disorder: Yes (HX OF MIGRAINES) Hx Respiratory Disorders: No Hx Cardiac Disorders: No Hx Psychiatric Problems: No Hx Miscellaneous Medical Probl: Yes (GERD) Hx Alcohol Use: No Hx Substance Use: No Hx Tobacco Use: No Smoking Status: Never smoker Physical Exam Vitals Vital Signs Date Time Temp Pulse Resp B/P Pulse Ox O2 Delivery O2 Flow Rate FiO2 06/26/17 15:45 98.1 72 20 118/76 100 Room Air 06/26/17 09:34 97.7 89 20 143/82 100 Physical Exam Const: No acute distress Head: Atraumatic Eyes: Normal Conjunctiva ENT: Normal External Ears, Nose and Mouth. Neck: Full range of motion..~ No meningismus. Resp: Clear to auscultation bilaterally Cardio: Regular rate and rhythm, no murmurs Abd: Soft, generalized abdominal pain non distended. Normal bowel sounds. No specific tenderness McBurney's Skin: No petechiae or rashes Back: No midline or flank tenderness Ext: No cyanosis, or edema Neur: Awake and alert Psych: Normal Mood and Affect Result Diagram: 06/26/17 1110 06/26/17 1110 Results 24 hrs Laboratory Tests Test 06/26/17 11:10 06/26/17 12:50 White Blood Count 7.310^3/ul Red Blood Count 4.4710^6/ul Hemoglobin 13.6g/dl Hematocrit 40.5% Mean Corpuscular Volume 90.6fl Mean Corpuscular Hemoglobin 30.4pg Mean Corpuscular Hemoglobin Concent 33.6g/dl Red Cell Distribution Width 13.8% Platelet Count 67366^3/UL Mean Platelet Volume 12.0fl Neutrophils % 87.3% Lymphocytes % 9.9% Monocytes % 2.6% Eosinophils % 0.0% Basophils % 0.1% Nucleated Red Blood Cells % 0.0/100WBC Neutrophils # (Manual) 610^3/ul Lymphocytes # 0.710^3/ul Monocytes # 0.210^3/ul Eosinophils # 0.010^3/ul Basophils # 0.010^3/ul Nucleated Red Blood Cells # 0.010^3/ul Sodium Level 143mmol/L Potassium Level 4.0mmol/L Chloride Level 106mmol/L Carbon Dioxide Level 20mmol/L Anion Gap 21 Blood Urea Nitrogen 8mg/dl Creatinine 0.77mg/dl Glucose Level 115mg/dl Calcium Level 9.7mg/dl Total Bilirubin 0.3mg/dl Direct Bilirubin 0.00mg/dl Indirect Bilirubin 0.3mg/dl Aspartate Amino Transf (AST/SGOT) 24IU/L Alanine Aminotransferase (ALT/SGPT) 29IU/L Alkaline Phosphatase 95IU/L Total Protein 8.9g/dl Albumin 5.2g/dl Globulin 3.70g/dl Albumin/Globulin Ratio 1.40 Lipase 44U/L Urine Color YELLOW Urine Clarity SLIGHTLY CLOUDY Urine pH 6.0 Urine Specific [place] 1.019 Urine Ketones 2+mg/dL Urine Nitrite NEGATIVEmg/dL Urine Bilirubin NEGATIVEmg/dL Urine Urobilinogen NEGATIVEmg/dL Urine Leukocyte Esterase TRACELeu/ul Urine Microscopic RBC 8/HPF Urine Microscopic WBC 8/HPF Urine Squamous Epithelial Cells FEW/HPF Urine Mucus FEW/HPF Urine Yeast (Budding) FEW/HPF Urine Hemoglobin 3+mg/dL Urine Glucose NEGATIVEmg/dL Urine Total Protein 1+mg/dl Current Medications Medications (Trade) Dose Ordered Sig/Charito Route PRN Reason Start Time Stop Time Status Last Admin Dose Admin Morphine Sulfate (morphine) 4 mg ONCE ONCE IV 06/26/17 12:00 06/26/17 12:01 DC 06/26/17 11:44 Ondansetron HCl 4 mg 4 mg ONCE ONCE IV 06/26/17 12:00 06/26/17 12:01 DC 06/26/17 11:45 Sodium Chloride (NS) 1,000 ml @ 1,000 mls/hr Q1H IV 06/26/17 12:00 06/26/17 12:59 DC 06/26/17 11:43 Ketorolac Tromethamine (Toradol) 30 mg ONCE STAT IV 06/26/17 13:48 06/26/17 13:49 DC 06/26/17 14:11 Metoclopramide HCl 10 mg 10 mg ONCE ONCE IV 06/26/17 14:00 06/26/17 14:01 DC 06/26/17 14:10 Sodium Chloride (NS) 500 ml @ 500 mls/hr Q1H ONCE IV 06/26/17 15:00 06/26/17 15:47 DC 06/26/17 14:43 Lorazepam (Ativan) 1 mg ONCE ONCE IV 06/26/17 15:00 06/26/17 15:01 DC 06/26/17 14:46 Miscellaneous Medication (Gi Cocktail (2)) 40 ml ONCE ONCE PO 06/26/17 15:00 06/26/17 15:01 DC 06/26/17 14:47 Ondansetron HCl (Zofran Inj) 4 mg STK-MED ONCE .ROUTE 06/26/17 11:33 06/26/17 17:05 DC Morphine Sulfate (morphine) 4 mg STK-MED ONCE .ROUTE 06/26/17 11:33 06/26/17 17:05 DC DIAGNOSTIC IMAGING REPORT Patient: MERON JONES : 1995 Age: 21 Sex: F MR #: [id number] DOS: 06/26/17 1141 Ordering MD: ZACK BROWN PA-C Location: [facility] Room/Bed: PROCEDURE: CT Abdomen and Pelvis without contrast CLINICAL INDICATION: Abdominal pain, colonoscopy yesterday, history of acid reflux. TECHNIQUE: Transaxial images were obtained through the abdomen and pelvis on a multi-slice scanner without the intravenous contrast administration. No oral contrast had previously been given. Sagittal and coronal re-formations were subsequently reconstructed. One or more of the following dose reduction techniques were used: - Automated exposure control. - Adjustment of the mA and/or kV according to patient size. - Use of iterative reconstruction technique. Radiation dose: CTDIvol = 5.19 mGy; DLP = 262.28 mGy-cm. COMPARISON: 12/13/2016 FINDINGS: Lung bases: The visualized lung bases appear unremarkable. Liver: The liver remains borderline enlarged but no focal lesion identified. Gallbladder: The wall is not thickened. No radiopaque stones are identified. Bile ducts: The intra and extrahepatic bile ducts are normal in caliber. Pancreas: Appears normal with no mass or inflammation evident. Spleen: Normal in size with no focal lesion. Adrenals: Normal with no mass identified. Kidneys, ureters and bladder: The kidneys are normal in size and there is no mass, pathological calcification, or hydronephrosis evident. There is no perinephric stranding. The ureters are normal in caliber and no ureteroliths are identified. The bladder appears unremarkable. Reproductive organs: Unremarkable. Stomach and bowel: The stomach remains mildly distended with fluid. There is no evidence of bowel obstruction or inflammation. Appendix: A normal vermiform appendix is evident. Peritoneum: No free intraperitoneal fluid or air is identified. Aorta: Normal in caliber with no aneurysmal dilatation. IVC: Unremarkable. Lymph nodes: No pathologically enlarged nodes are identified. Osseous structures: A small bone island is again seen within the left anterior inferior ileum. The osseous structures appear intact. IMPRESSION: 1. Compared to the previous CT of 12/13/2016, there is again borderline hepatomegaly with no focal lesion. 2. No evidence of bowel obstruction or inflammation with a normal vermiform appendix. 3. No evidence of urinary outflow obstruction or ureterolithiasis within normal appearing bladder. 4. No radiopaque stone is seen within the gallbladder, no bile duct dilatation is evident and the pancreas appears unremarkable. 5. There is no free intraperitoneal fluid or air. Physician Dede Date Time Electronically viewed and signed by Physician Dede on 06/26/2017 12:54 RH/ CC: ZACK BROWN PA-C Procedures/[facility] This 21-year-old female presents to the emergency department today complaining of severe abdominal pain after colonoscopy yesterday. Patient was seen here approximately 1 week ago for persistent nausea and vomiting. Given patient's complaint and history of colonoscopy yesterday did obtain laboratory work as well as imaging Laboratory workup shows no elevated white blood cell count. She is not anemic. Platelets are within normal limits. Electrolytes are within normal limits. Glucose is within normal limits. Liver enzymes are within normal limits. Lipase is within normal limits UA shows trace leukocyte esterase. 2+ ketones. Urine test is negative CT abdomen pelvis shows borderline hepatomegaly with no focal lesion as compared to previous CT of December 13, 2016. There is no evidence of bowel obstruction or inflammation within normal variform appendix. There is no evidence of urinary outflow obstruction or ureterolithiasis with normal- appearing bladder. There is no radial proximal stone seen in the gallbladder no bile duct dilatation and pancreas is unremarkable. Stomach remains mildly distended with fluid. There is no evidence of bowel obstruction or inflammation Patient was given morphine, Zofran and 1.5 L of IV fluids here in the emergency department and patient indicated pain persisted and was therefore given Toradol , Reglan and Ativan. Patient reported significant improvement Patient has abdominal pain with nausea and vomiting of uncertain etiology however it may be related to chronic marijuana use . I have explained this to the patient and she was instructed to stop abusing drugs. There is no evidence of acute surgical abdomen. She will be given a prescription for short course of [place], Zofran, Pepcid and Tylenol for home. She was instructed to follow back up with Dr. Reyes At this time the patient is stable for discharge and outpatient management. Patient should follow up with their PCP in the next 1-2 days. They may return to the emergency department sooner for any persistent or worsening of symptoms. Patient understood and agreed with the plan. Discussed the patient with Dr. Mirza and he is in agreement with the plan. Departure Diagnosis: Primary Impression: Abdominal pain Abdominal location: generalized Qualified Code: R10.84 - Generalized abdominal pain Additional Impression: Vomiting Vomiting type: unspecified Vomiting Intractability: non-intractable Nausea presence: with nausea Qualified Code: R11.2 - Non-intractable vomiting with nausea, unspecified vomiting type Condition: ZACK Elder PA-C Jun 26, 2017 13:03
[2017-06-26 13:21] LABS: ADD UMIC YES; UR ASCORBIC ACID 40 mg/dL (NEGATIVE); UR BILIRUBIN (Dip) NEGATIVE (NEGATIVE); UR BLOOD (Dip) 3+ mg/dL (NEGATIVE); UR BUDDING YEAST FEW /HPF (NONE SEEN); UR CLARITY SLIGHTLY CLOUDY (CLEAR); UR COLOR YELLOW (YELLOW); UR GLUCOSE (Dip) NEGATIVE (NEGATIVE); UR KETONES (Dip) 2+ mg/dL (NEGATIVE); UR LEUKOCYTE ESTERASE (Dip) TRACE Leu/ul (NEGATIVE); UR MUCUS FEW /HPF (NONE SEEN); UR NITRITE (Dip) NEGATIVE (NEGATIVE); UR RBC 8 /HPF (0-5); UR SPECIFIC GRAVITY (Dip) 1.019 (1.003-1.030); UR SQUAMOUS EPITHELIAL CELL FEW /HPF (FEW); UR TOTAL PROTEIN (Dip) 1+ mg/dl (NEGATIVE); UR UROBILINOGEN (Dip) NEGATIVE (NEGATIVE)
[2017-06-26] MEDS ORDERED: KETOROLAC 30 MG INJ IV STA (13:48)
[2017-06-26] MEDS ORDERED: METOCLOPRAMIDE 10 MG INJ IV ONE (14:00)
[2017-06-26] MEDS ORDERED: LIDOCAINE/MYLANTA 40 ML BTL PO ONE (15:00)
[2017-06-26] MEDS ORDERED: SOD CHLORIDE 0.9% 500 ML IV ONE (15:00)
[2017-06-26] MEDS ORDERED: LORAZEPAM 2 MG INJ IV ONE (15:00)
[2017-06-26] MEDS ORDERED: FAMO-96 PO (15:31)
[2017-06-26] MEDS ORDERED: ONDA4TAB8 PO (15:31)
[2017-06-26] MEDS ORDERED: HYDR-906 PO (15:31)
[2017-06-26] MEDS ORDERED: ACET500C5 PO (15:32)
[2017-06-26] MEDS ORDERED: ELEC100080 PO (15:32)
[2017-06-26 15:45] VITALS: BP 118/76; PULSE 72; RESP 20; TEMP 98.1
== END 2017-06-26 15:47 | disposition home or self-care (01) ==
LOC: FTE 09:30
DX: R10.84 Generalized abdominal pain (principal); R11.2 Nausea with vomiting, unspecified
CPT/HCPCS: 36415; 74176; 80053; 81001; 83690; 85025; 96374; 96375; J1885; J2060; J2270; J2405; J2765; J7030; Z7502; Z7610

== ENCOUNTER 2017-11-15 08:44 | Emergency (ER) | END 2017-11-15 11:50 | disposition home or self-care (01) ==